=== PATIENT | male | born 1940 | race Caucasian/White ===

== ENCOUNTER 2023-11-06 00:37 | Emergency (ER) | payer MEDICARE, BC ==
[~2023-11-06] VITALS: Ht 170.2 cm; Wt 50.0 kg
[~2023-11-06 00:37] MED LIST: ASCO100031 PO; ASPI81TA52 PO; ATOR20TA66 PO; BIMA2.5D OP; BIMA2.5D RIGHTEYE; BRIM10DR2 LEFTEYE; BUPR-317 PO; BUTA1CAP3 PO; CARB15DR RIGHTEYE; CYAN-104 PO; DRON400T6 PO; ESOM40CA54 PO; FIBER PO; FLO0.4C; FLUT16SP26 BOTHNARES; METO-395 PO; MULT-1085 PO
[2023-11-06 01:44] LABS: BASOPHILS # (AUTO) 0.1 X10'3 (0-0.2); BASOPHILS % (AUTO) 1.3 % (0-1); EOSINOPHILS # (AUTO) 0.2 X10'3 (0-0.9); EOSINOPHILS % (AUTO) 2.8 % (0-6); HEMATOCRIT 33.7 % (42.0-52.0); HEMOGLOBIN 11.1 g/dl (14.0-17.9); LYMPHOCYTES # (AUTO) 1.3 X10'3 (1.1-4.8); MEAN CORPUSCULAR HEMOGLOBIN 30.5 PG (27.0-31.0); MEAN CORPUSCULAR HGB CONC 32.8 g/dL (33.0-36.5); MEAN CORPUSCULAR VOLUME 92.8 FL (78-98); MEAN PLATELET VOLUME 6.5 FL (7.4-10.4); MONOCYTES # (AUTO) 0.7 X10'3 (0-0.9); MONOCYTES % (AUTO) 9.4 % (2-12); NEUTROPHILS # (AUTO) 4.8 X10'3 (1.8-7.7); NEUTROPHILS % (AUTO) 68.5 % (42-75); PLATELET COUNT 487 X10'3 (140-440); RED BLOOD COUNT 3.63 X10'6 (4.70-6.10); RED CELL DISTRIBUTION WIDTH 14.2 % (11.5-14.5)
[2023-11-06 01:44] LABS: BILIRUBIN,URINE NEGATIVE (Neg); CLARITY,URINE SLIGHTLY CLOUDY (Clear); COLOR,URINE YELLOW (Yellow); GLUCOSE, URINE NEGATIVE (Neg); KETONES,URINE NEGATIVE (Neg); LEUKOCYTE ESTERASE ,URINE NEGATIVE (Neg); NITRITES, URINE NEGATIVE (Neg); OCCULT BLOOD,URINE MODERATE (Neg); PH,URINE 7.5 (4.8-8.0); PROTEIN,URINE NEGATIVE (Neg); UA COLLECTION TYPE FOLEY CATH; UROBILINOGEN,URINE 0.2 E.U/dL (0.2-1.0)
[2023-11-06 01:52] LABS: ALBUMIN 2.1 G/DL (3.4-5.0); ANION GAP 6 (8-16); BLOOD UREA NITROGEN 34 MG/DL (7-18); BUN/CREATININE RATIO 14.5 (10.0-20.0); CALCIUM 8.9 MG/DL (8.5-10.1); CHLORIDE 101 MMOL/L (99-107); CREATININE 2.34 MG/DL (0.60-1.10); GLUCOSE 111 MG/DL (70-104); MAGNESIUM 2.5 MG/DL (1.5-2.4); POTASSIUM 4.7 MMOL/L (3.5-5.1); SODIUM 136 MMOL/L (135-145); TOTAL CARBON DIOXIDE 29.4 MMOL/L (24-32); eCRCL 16 ML/MIN; eGFR 27 ML/MIN
[2023-11-06 01:52] LABS: MUCUS STRANDS NONE SEEN /LPF (Neg); RBC,URINE 20-50 /HPF (0-2); SQUAMOUS EPITHELIAL CELL,UR FEW /LPF (FEW); WBC,URINE 0-4 /HPF (0-4)
[2023-11-06 01:54] LABS: AMORPHOUS PHOSPHATES 2+; BACTERIA,URINE FEW /HPF (Neg)
[2023-11-06 11:10] VITALS: BP 112/64; PULSE 75; RESP 16; TEMP 97; O2SAT 96
== END 2023-11-06 11:15 ==
LOC: ER 00:37
DX: G93.41 Metabolic encephalopathy (principal); E86.0 Dehydration; Z88.6 Allergy status to analgesic agent; Z88.5 Allergy status to narcotic agent; Z88.1 Allergy status to other antibiotic agents; Z88.8 Allergy status to other drugs, medicaments and biological substances; Z79.82 Long term (current) use of aspirin; Z79.899 Other long term (current) drug therapy
CPT/HCPCS: 36415; 70450; 71045; 72131; 80048; 81001; 83605; 83735; 84145; 85025; 87040; 93005; 99285; A4314

== ENCOUNTER 2024-01-27 12:52 | Outpatient (CLI) | payer MEDICARE, BC ==
[~2024-01-27 12:52] MED LIST changes: -BUPR-317 PO; +BUPR-561 PO; -ESOM40CA54 PO; +ESOM40CA66 PO
== END 2024-01-27 23:59 | disposition home or self-care (01) ==
LOC: RAD 12:52
PROVIDERS: ATTEND Student in an Organized Health Care Education/Training Program
DX: R13.19 Other dysphagia (principal)
CPT/HCPCS: 74220

== ENCOUNTER 2024-10-05 13:39 | Outpatient (CLI) | payer MEDICARE, BC ==
[~2024-10-05 13:39] MED LIST changes: -BUPR-561 PO; +BUPR-726 PO; +BUTA1CAP PO; -BUTA1CAP3 PO; -FLO0.4C; +TAMS-55
--- NOTE | 2024-10-05 16:44 | RADIOLOGY REPORT ---
PROCEDURE: MR MRI LUMBAR SPINE Indication: RADICULOPATHY, LUMBAR REGION COMPARISON: CT CT LUMBAR SPINE on DOS: 11/06/23, MR MRI LUMBAR SPINE on DOS: 10/25/23 TECHNIQUE: Multiplanar multisequence images of the the lumbar spine are obtained. FINDINGS: For the purpose of this examination, there are 5 lumbar vertebral body types counting from the lumbos acral junction. Acute to subacute L2 compression fracture deformity with 30% loss height with increased marrow edema and decreased T1 hypointense signal since the previous examination.. Severe multilevel disc space na rrowing and desiccation most pronounced at L3-4, L4-5, L5-S1. There are degenerative edematous endpla te changes especially pronounced at L3, L4 and L5. Lumbar alignment grossly preserved. Conus terminates at the L1-2 disc space level. L1-2: 2 mm disc protrusion. Mild facet and flavum hypertrophy. No spinal canal, neural foraminal dee dee nosis. L2-3: 3 mm disc protrusion. Spag-jb-gcyurrkc facet and flavum hypertrophy. No spinal canal stenosis. Trqg-yi-yypoplvj bilateral neural foraminal stenosis secondary to facet and uncovertebral hypertroph y. L3-4: 3 mm disc protrusion with dominant left paracentral/ foraminal component. Moderate facet and f lavum hypertrophy. Umot-vm-zqbclltr right and moderate left neural foraminal stenosis. L4-5: 5 mm disc protrusion. Moderate facet and flavum hypertrophy. Thecal sac measures 5 mm AP. Sev ere spinal canal stenosis. Severe right and moderate to severe left neural foraminal stenosis. L5-S1: 3 mm disc osteophyte complex. Moderate facet and flavum hypertrophy. No spinal canal stenosis . Severe bilateral neural foraminal stenosis. IMPRESSION: 1. Findings suggestive of acute to subacute subacute L2 compression fracture superimposed on the prev ious fracture seen from 2023. 30% loss of vertebral body height. No significant retropulsion. Other c onsiderations for the marrow edema at the L2 superior endplate would include osteonecrosis. 2. Severe lumbar degenerative disc disease. 3. Severe spinal canal stenosis L4-5. 4. Multilevel moderate to severe neural foraminal stenosis most pronounced at L4-5 and L5-S1.
== END 2024-10-05 23:59 | disposition home or self-care (01) ==
LOC: MRI 13:39
PROVIDERS: ATTEND Family Medicine
DX: S32.020A Wedge compression fracture of second lumbar vertebra, initial encounter for closed fracture (principal); M51.16 Intervertebral disc disorders with radiculopathy, lumbar region; M25.78 Osteophyte, vertebrae; M48.07 Spinal stenosis, lumbosacral region; X58.XXXA Exposure to other specified factors, initial encounter; Y93.89 Activity, other specified; Y92.89 Other specified places as the place of occurrence of the external cause; Y99.9 Unspecified external cause status; M47.26 Other spondylosis with radiculopathy, lumbar region
CPT/HCPCS: 72148

== ENCOUNTER 2024-12-05 09:15 | Day surgery (SDC) | payer MEDICARE, BC ==
[~2024-12-05] VITALS: Ht 160 cm; Wt 53.7 kg
[2024-12-05] VITALS (10 sets, daily range): BP systolic 123–141; BP diastolic 64–87; PULSE 74–95; RESP 14–23; TEMP 98.2; O2SAT 95–100
[2024-12-05] MEDS ORDERED: fentaNYL/PF 50MCG/1 ML 2ML syringe IV ONE (09:40)
[2024-12-05] MEDS ORDERED: normal saline 1000ml 1,000 ML IV SCH (09:40)
[2024-12-05] MEDS ORDERED: ESOM40CA43 PO (10:03)
[2024-12-05] MEDS ORDERED: CEPH500C81 PO (10:03)
[2024-12-05] MEDS ORDERED: FLUT16SP BOTHNARES (10:03)
[2024-12-05] MEDS ORDERED: WHEA1TAB7 PO (10:03)
[2024-12-05] MEDS ORDERED: TIMO1DRO12 (10:03)
[2024-12-05] MEDS ORDERED: CHOL100046 PO (10:03)
[2024-12-05] MEDS ORDERED: TADA20TA PO (10:03)
[2024-12-05] MEDS ORDERED: DOCU100C41 PO (10:03)
--- NOTE | 2024-12-05 10:12 | ELECTROCARDIOGRAPH REPORT ---
[facility] Test Date: 2024-12-05 Test Time: 10:11:30 Pat Name: ELIDIA GRANADO Department: [facility] Patient ID: [id number] Room: Gender: M [employer] Manager: KAYLA : 1940 Requested By: WOODROW DOBBINS Order Number: [id number] Reading MD: Dr. CR Chavez Measurements Intervals [place] Rate: 71 P: 74 NE: 187 QRS: 66 QRSD: 102 T: 49 QT: 439 QTc: 478 Interpretive Statements Sinus rhythm Borderline prolonged QT interval Electronically Signed On 12-05-2024 11:17:[address] CR Chavez Please click the below link to view image of tracing.
[2024-12-05] MEDS: glycopyrrolate 0.2mg/ml inj IV ONE (10:14)
[2024-12-05 10:54] LABS: MEAN PLATELET VOLUME 6.3 FL (7.4-10.4); RED CELL DISTRIBUTION WIDTH 21.6 % (11.5-14.5)
[2024-12-05 11:01] LABS: INR 1.0 INR
[2024-12-05 11:13] LABS: CREATINE KINASE MB 1.0 ng/ml (0.3-3.6); CREATININE 2.18 MG/DL (0.60-1.10); TOTAL CARBON DIOXIDE 22.5 MMOL/L (24-32); eCRCL 18 ML/MIN; eGFR 29 ML/MIN
[2024-12-05] MEDS: MIDAZolam 1mg/ml 10ml vial IV ONE (11:15)
--- NOTE | 2024-12-05 17:23 | CARDIOLOGY REPORT ---
APPROVED REPORT EXAM: Transesophageal echocardiogram with color flow Doppler. Patient Location: CARDIAC SHORT STAY Blood Pressure: 134/76 mmHg Heart Rate: 99 bpm Rhythm: SINUS Indications EVALUATE FOR SUBACUTE BACTERIAL ENDOCARDITIS POSITIVE BLOOD CULTURES (LACTOCOCCUS) AMANDA probe passed by: Emerita Roque DO [employer] Coverer: Emerita Roque DO Previous echo: 10/16/24 MMCR (EF 55-60%, sev LAE, thickened PML, sev TR, sev MR) LEFT VENTRICLE Normal LV size and function. Mild concentric hypertrophy. LVEF is 55-60%. RIGHT VENTRICLE RV is moderately dilated with grossly normal systolic function. ATRIA ? small L to R PFO viusalized with CF Doppler (IMG 7). LA appears severely dilated. RA appears at alan st mildly dilated. AORTIC VALVE Trileaflet AV appears mildly sclerotic without stenosis or insufficiency. 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 Rflectance from the prolapsing posterior leaflet makes confident exlusion of a vegetation difficult; but, no obvious "elysia gling globs" were visualized TRICUSPID VALVE TV is not well visualized but appears grossly normal structurally. PULMONIC VALVE Normal PV without stenosis, physiologic insufficiency. PERICARDIUM Normal pericardium. No effusion.
== END 2024-12-05 12:00 | disposition home or self-care (01) ==
LOC: SSTAY O 09:15
PROVIDERS: ATTEND Internal Medicine Cardiovascular Disease
DX: I34.0 Nonrheumatic mitral (valve) insufficiency (principal); I34.1 Nonrheumatic mitral (valve) prolapse; I27.20 Pulmonary hypertension, unspecified; E78.00 Pure hypercholesterolemia, unspecified; I49.3 Ventricular premature depolarization; Z79.899 Other long term (current) drug therapy; Z98.890 Other specified postprocedural states
CPT/HCPCS: 80048; 82553; 83735; 85025; 85610; 93005; 93312; 93325; 94760; J2250; J3490; J7030